=== PATIENT | male | born 1945 | race Caucasian/White ===

== ENCOUNTER 2016-03-16 11:03 | Emergency (ER) | payer MEDICARE, OTHER ==
[~2016-03-16] VITALS: Ht 185.4 cm; Wt 84.1 kg
[~2016-03-16 11:03] MED LIST: ASPIRIN 81M81 MG/TA2 PO; FLOMAX 0.40.4 MG/CAP PO; MACROBID 1100 MG/CAP PO; NEURONTIN400 MG/CAP PO; NORCO 325 MG-51 TAB PO; PRAVACHOL 20MG20 MG PO
[2016-03-16 11:05] VITALS: BP 151/87; PULSE 70; TEMP 98.5
[2016-03-16] MEDS ORDERED: MULTI VITAMINS1 TAB PO (11:10)
== END 2016-03-16 12:48 | disposition home or self-care (01) ==
LOC: COL.ER 11:03
DX: S82.832A Other fracture of upper and lower end of left fibula, initial encounter for closed fracture (principal); W00.0XXA Fall on same level due to ice and snow, initial encounter; Y92.008 Other place in unspecified non-institutional (private) residence as the place of occurrence of the external cause

== ENCOUNTER 2019-04-03 13:00 | Outpatient (RCR) | payer MEDICARE, OTHER ==
[~2019-04-03 13:00] MED LIST changes: +MULTI VITAMINS1 TAB PO
[2019-04-03 14:16] VITALS: BP 122/73; PULSE 69; TEMP 98.6
[2019-04-03] MEDS ORDERED: CRESEMBA186 MG PO (14:22)
[2019-04-03] MEDS ORDERED: BACTRIM DS 8001 TAB PO (14:23)
[2019-04-03 14:34] VITALS: BP 121/71; PULSE 69; TEMP 98.5
[2019-04-03 14:49] VITALS: BP 119/68; PULSE 68; TEMP 98.3
[2019-04-03 15:19] VITALS: BP 105/72; PULSE 66; TEMP 98
[2019-04-03 15:32] VITALS: BP 115/68; PULSE 67; TEMP 97.4
== END 2019-04-03 15:35 | disposition home or self-care (01) ==
LOC: EUO 13:00
DX: C92.00 Acute myeloblastic leukemia, not having achieved remission (principal); D61.818 Other pancytopenia
CPT/HCPCS: J7050; P9037

== ENCOUNTER 2019-04-07 21:58 | Inpatient (IN) | payer MEDICARE, OTHER ==
[~2019-04-07] VITALS: Ht 182.9 cm; Wt 74.4 kg
[~2019-04-07 21:58] MED LIST changes: +BACTRIM DS 8001 TAB PO; +CRESEMBA186 MG PO
[2019-04-07 23:02] LABS: MEAN CELL VOLUME 97 fl (80.0-100.0); MEAN CORPUSCULAR HGB CONC 32 g/dl (33.0-37.0); MEAN PLATELET VOLUME 10.6 fl (7.4-10.4); RED BLOOD COUNT 2.91 M/mm3 (4.20-5.60); REDCELL DISTRIBUTION WIDTH-CV 15.4 % (11.5-14.5)
[2019-04-07 23:07] LABS: COLLECTION METHOD CLEAN CATCH
[2019-04-07 23:12] LABS: HEMATOCRIT 28.1 % (42.0-52.0); MEAN CORPUSCULAR HEMOGLOBIN 31 pg (27.0-31.0)
[2019-04-07 23:13] LABS: PLATELET COUNT 14 K/mm3 (130-400)
[2019-04-07 23:13] LABS: PH 6 (5-8); SQUAMOUS EPITHELIAL None Seen /hpf; URINE APPEARANCE Clear; URINE BACTERIA None Seen /hpf; URINE BILIRUBIN Negative (NEGATIVE); URINE BLOOD Negative (NEGATIVE); URINE COLOR Yellow; URINE GLUCOSE Negative (NEGATIVE); URINE KETONE Negative (NEGATIVE); URINE LEUKOCYTE ESTERASE Negative (NEGATIVE); URINE NITRATE Negative (NEGATIVE); URINE PROTEIN(semi-quant) Negative (NEGATIVE); URINE RBC 0-2 /hpf; URINE UROBILINOGEN Negative (NEGATIVE); URINE WBC 0-2 /hpf
[2019-04-07 23:17] LABS: ALBUMIN 4.3 gm/dL (3.5-5.0); BILIRUBIN,TOTAL 0.4 mg/dL (0.0-1.0); CALCIUM 9.1 mg/dL (8.4-10.2); CREATININE, serum 0.9 (0.66-1.25); POTASSIUM 4.6 mmol/L (3.4-5.0); TOTAL PROTEIN 7.2 gm/dL (6.4-8.2)
[2019-04-07 23:30] LABS: TROPONIN-I 0.073 ng/mL (0.000-0.035)
[2019-04-08 03:58] VITALS: BP 131/64; PULSE 74; TEMP 99.4
[2019-04-08 05:07] LABS: BAND 8 % (0-10); LYMPHOCYTE 19 % (20.0-51.0); NEUTROPHILS 69 % (42.0-75.2)
--- NOTE | 2019-04-08 05:16 | NUR ---
Patient arrived to medical floor from ER at approximately 0400. Assessment complete. Denies having pain and discomfort at this time. NS running at 125 ml/hr to peripheral IV to right AC. Site is without redness, warmth, swelling, and pain. LS CTA. Respirations even and unlabored. Denies SOB and dyspnea at rest. States he does get short of breath with exertion. On oxygen at 2 L/min via NC. HRR. Telemetry in place: sinus. Capillary refill less than 3 seconds. Non-tenting skin turgor. BSAx4. Abdomen soft and non-tender. Denies diarrhea and constipation. No edema. Voices no questions, needs, or concerns at this time. Resting in bed with call light within reach.
--- NOTE | 2019-04-08 07:04 | NUR ---
Report given to day shift nurse.
[2019-04-08 07:49] VITALS: BP 118/59; PULSE 70; TEMP 98.9
[2019-04-08 08:29] LABS: CALCIUM 8.7 mg/dL (8.4-10.2); CREATININE, serum 0.71 (0.66-1.25); POTASSIUM 4.2 mmol/L (3.4-5.0)
[2019-04-08 08:36] LABS: EOS # 0.2 (0.0-0.7); EOS % 3.7 % (0-4.0); GRAN # 3.1 (1.4-6.5); GRAN % 76.6 % (42.2-75.2); LYMPH # 0.6 (1.2-3.4); LYMPH % 15.3 % (20.0-51.0); MEAN CELL VOLUME 98 fl (80.0-100.0); MEAN CORPUSCULAR HGB CONC 32 g/dl (33.0-37.0); MONO # 0.2 (0.1-0.6); MONO % 4.2 % (1.7-9.3); RED BLOOD COUNT 2.57 M/mm3 (4.20-5.60); REDCELL DISTRIBUTION WIDTH-CV 15.7 % (11.5-14.5)
[2019-04-08 09:01] LABS: TROPONIN-I 6 HR POST INITIAL 0.055 ng/mL (0.000-0.034)
[2019-04-08 09:18] LABS: HEMATOCRIT 25.2 % (42.0-52.0); MEAN CORPUSCULAR HEMOGLOBIN 31 pg (27.0-31.0)
[2019-04-08 09:19] LABS: PLATELET COUNT 12 K/mm3 (130-400)
--- NOTE | 2019-04-08 09:53 | NUR ---
Patient lives at home with his (Malik Dixon [phone]) in [place], [place] and plans to return home upon recovery. 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 Patient is receiving medical care from Dmitry Butler and Dr. Ortiz ([facility]), her pharmacy is [facility]) and he does not have advance directives for healthcare completed or on edwar at this time. 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 Patient has three children who are supportive; one child lives local in [place] and the other two children live [id number]. No further needs and health social work professor will follow up as needed.
[2019-04-08 11:12] VITALS: BP 123/57; PULSE 67; TEMP 98.2
--- NOTE | 2019-04-08 12:17 | NUR ---
Patient sitting in bed upon shift assessment. Denies having any pain at this time. States he is just tired and has very little energy. Patient has been afebrile since arriving, highest recorded temperature is 99.3 degrees. As of beginning of shift temp was 98.9 degrees. Patient's daughter Mary called for an update on patient. Patient gave daughter patient password so information could be given to her. Daughter and son-in-law at bedside. No further concerns at this time. Call light in reach.
[2019-04-08 15:32] LABS: EOS # 0.1 (0.0-0.7); EOS % 2.8 % (0-4.0); GRAN # 3.8 (1.4-6.5); GRAN % 80.9 % (42.2-75.2); LYMPH # 0.6 (1.2-3.4); LYMPH % 11.8 % (20.0-51.0); MEAN CELL VOLUME 98 fl (80.0-100.0); MEAN CORPUSCULAR HGB CONC 32 g/dl (33.0-37.0); MEAN PLATELET VOLUME 10.7 fl (7.4-10.4); MONO # 0.2 (0.1-0.6); MONO % 4.3 % (1.7-9.3); RED BLOOD COUNT 2.42 M/mm3 (4.20-5.60); REDCELL DISTRIBUTION WIDTH-CV 15.3 % (11.5-14.5)
[2019-04-08 15:33] LABS: HEMATOCRIT 23.6 % (42.0-52.0); HEMOGLOBIN 7.5 g/dl (13.5-18.0); MEAN CORPUSCULAR HEMOGLOBIN 31 pg (27.0-31.0); PLATELET COUNT 10 K/mm3 (130-400)
[2019-04-08 16:36] VITALS: BP 128/60; PULSE 73; TEMP 100.1
[2019-04-08 18:39] VITALS: TEMP 100.8
--- NOTE | 2019-04-08 19:26 | NUR ---
Patient's temperature up to 100.8 this evening with chills and face flushing. Tylenol given. Renay notified. Additional blood cultures ordered.
[2019-04-08 21:16] VITALS: BP 105/55; PULSE 69; TEMP 99.2
[2019-04-09] VITALS (11 sets, daily range): BP systolic 104–144; BP diastolic 55–85; PULSE 64–83; TEMP 98.3–101.6
--- NOTE | 2019-04-09 01:16 | NUR ---
ASSESSMENT COMPLETE.RESTING IN BED. DAUGHTER AT BEDSIDE. 02 3L PER NC. DENIES NEEDS AT THIS TIME.
[2019-04-09 06:20] LABS: EOS # 0.1 (0.0-0.7); EOS % 1.9 % (0-4.0); GRAN # 3.5 (1.4-6.5); GRAN % 82.7 % (42.2-75.2); LYMPH # 0.5 (1.2-3.4); LYMPH % 11.4 % (20.0-51.0); MEAN CELL VOLUME 96 fl (80.0-100.0); MEAN CORPUSCULAR HGB CONC 32 g/dl (33.0-37.0); MEAN PLATELET VOLUME 11.1 fl (7.4-10.4); MONO # 0.2 (0.1-0.6); MONO % 3.5 % (1.7-9.3); REDCELL DISTRIBUTION WIDTH-CV 15.1 % (11.5-14.5)
[2019-04-09 06:21] LABS: CALCIUM 8.8 mg/dL (8.4-10.2); CREATININE, serum 0.7 (0.66-1.25); MAGNESIUM 1.6 mg/dL (1.6-2.3); POTASSIUM 4.4 mmol/L (3.4-5.0)
[2019-04-09 06:33] LABS: HEMOGLOBIN 7.4 g/dl (13.5-18.0); MEAN CORPUSCULAR HEMOGLOBIN 31 pg (27.0-31.0)
[2019-04-09 06:37] LABS: PLATELET COUNT 40 K/mm3 (130-400)
--- NOTE | 2019-04-09 07:00 | NUR ---
Bedside shift report received from HANNAH Mcintosh. Pt in bed resting, very diaphoretic, re-checked temperature and it is 98.4 now. Will continue michelle ontor.
--- NOTE | 2019-04-09 10:00 | NUR ---
Assessment charted. Pt feeling lethargic and falls alseep easily today. family resting at bedside. Following neutropenic precautions per request from family. Pt remains afebrile, eating some. O2 remains at 4L NC, only at 92% cannot titrate down at this time. Bed bath and linen change provided but pt wants to get some rest and nap. Will cotninue to monitor.
[2019-04-09 11:15] LABS: ARTERIAL BLD GAS O2 SATURATION 92.8 % (92-100); ARTERIAL BLD GAS TCO2 CT 23.6; ARTERIAL BLOOD GAS HCO3 22.6 meq/L (22-26); ARTERIAL BLOOD GAS PO2 69.4 mmHg (80-100); ARTERIAL BLOOD GAS pH 7.45 (7.35-7.45)
--- NOTE | 2019-04-09 11:34 | NUR ---
Advertising Account Executive attended clinical rounds with the team. Patient currently on four liters of oxygen. SW to continue to follow as needed.
--- NOTE | 2019-04-09 19:07 | NUR ---
Pt has had one temp for us today, PRN tylenol given. Unable to titrate 02 needs down, switched to OM per RT to help with mouth breathing. Pt eating in bed, bedside shift report given to nightshift nurse who will resume care.
--- NOTE | 2019-04-09 22:04 | NUR ---
ASSESSMENT COMPLETE. RESTING IN BED. 02 PER OXY MASK @ 5L. SON-IN-LAW AT BEDSIDE. DENIES NEEDS AT THIS TIME.
[2019-04-10] VITALS (535 sets, daily range): BP systolic 98–144; BP diastolic 57–74; PULSE 68–85; TEMP 97.5–102.2; O2SAT 76–100
[2019-04-10 04:16] LABS: ARTERIAL BLD GAS O2 SATURATION 94.8 % (92-100); ARTERIAL BLD GAS TCO2 CT 21.5; ARTERIAL BLOOD GAS BASE EXCESS -2.5 (-2-2); ARTERIAL BLOOD GAS HCO3 20.6 meq/L (22-26); ARTERIAL BLOOD GAS PO2 77.7 mmHg (80-100); ARTERIAL BLOOD GAS pH 7.47 (7.35-7.45)
--- NOTE | 2019-04-10 05:35 | NUR ---
@[id number] NOTIFIED PROVIDER THAT PT 02 NEEDS INCREASED TO 6L PER HIGH FLOW N/C, SATED 88% AFTER LIGHT EXERTION TURNING IN BED FOR BED CHANGE. ABG ORDERED.
[2019-04-10 08:39] LABS: EOS # 0.1 (0.0-0.7); EOS % 2.6 % (0-4.0); GRAN # 4.1 (1.4-6.5); GRAN % 74.7 % (42.2-75.2); LYMPH # 1.1 (1.2-3.4); LYMPH % 19.4 % (20.0-51.0); MEAN CELL VOLUME 98 fl (80.0-100.0); MEAN CORPUSCULAR HGB CONC 32 g/dl (33.0-37.0); MEAN PLATELET VOLUME 11.1 fl (7.4-10.4); MONO # 0.2 (0.1-0.6); MONO % 3.1 % (1.7-9.3); RED BLOOD COUNT 2.81 M/mm3 (4.20-5.60); REDCELL DISTRIBUTION WIDTH-CV 15.1 % (11.5-14.5)
[2019-04-10 08:48] LABS: CALCIUM 8.9 mg/dL (8.4-10.2); CREATININE, serum 0.82 (0.66-1.25)
[2019-04-10 08:54] LABS: HEMATOCRIT 27.5 % (42.0-52.0); HEMOGLOBIN 8.7 g/dl (13.5-18.0); MEAN CORPUSCULAR HEMOGLOBIN 31 pg (27.0-31.0)
[2019-04-10 08:55] LABS: PLATELET COUNT 35 K/mm3 (130-400)
--- NOTE | 2019-04-10 09:40 | NUR ---
Patient arrives to ICU on 8LO2. He is able to move from wheelchair to bed with little assitance. Patient and his son in law are oriented to room, call light, visitor policies and questions are answered. Plan of care is reviewed. Assessment completed. Will continue to monitor
--- NOTE | 2019-04-10 09:43 | NUR ---
Assessment completed, alert/oriented, vital signs stable/ afebrile, denies pain, patient O2 demands continue to increase/ he is now on 8L. o2 Hi-flow, lungs bases are diminished with some fine crackles, he gets very SOA with exertion, heart RRR/distal pulses are palpable, was consulted and has been by to evaluate/ Solu-medrol ordered and he would like him moved to [facility] for closer observation, [facility] have been in contact with patient care team at [facility], family present in the room and plan of care discussed and questions answered, I have called and given report to receiving nurse HANNAH No in the ICU, we are transporting patient by wheelchair to room ICU 5 / son present at time of transfer
--- NOTE | 2019-04-10 13:59 | NUR ---
Vancomycin Initial Dosing Pharmacy Note Ordering provider: Carlyle Indication/duration: Empiric LABS: eCrCl ~ 90 Recommendation: Maintenance dose: 1.25 grams every 12 hours Trough goal: 15-20 ug/mL with first level 04/12/19 @ 13:30. Will continue to follow.
--- NOTE | 2019-04-10 17:00 | NUR ---
OXYGEN VIA NASAL CANNULA HAS BEEN TITRATED DOWN TO 2L/MIN. PATIENT HAS MAINTAINED SPO2 OF 92-96%. HE IS NOW OUT OF BED, SITTING UP IN RECLINER. HE HAS NO COMPLAINTS. WILL CONTINUE TO MONITOR.
--- NOTE | 2019-04-10 19:32 | NUR ---
BEDSIDE REPORT GIVEN TO HANNAH TEE
[2019-04-11] VITALS (722 sets, daily range): BP systolic 97–115; BP diastolic 61–67; PULSE 63–68; TEMP 97.5–98.8; O2SAT 78–100
[2019-04-11 04:38] LABS: MEAN CELL VOLUME 95 fl (80.0-100.0); MEAN CORPUSCULAR HGB CONC 33 g/dl (33.0-37.0); RED BLOOD COUNT 2.44 M/mm3 (4.20-5.60); REDCELL DISTRIBUTION WIDTH-CV 14.6 % (11.5-14.5)
[2019-04-11 04:47] LABS: HEMATOCRIT 23.1 % (42.0-52.0); HEMOGLOBIN 7.6 g/dl (13.5-18.0); MEAN CORPUSCULAR HEMOGLOBIN 31 pg (27.0-31.0)
[2019-04-11 04:48] LABS: PLATELET COUNT 29 K/mm3 (130-400)
[2019-04-11 04:55] LABS: ALBUMIN 3.7 gm/dL (3.5-5.0); BILIRUBIN,TOTAL 0.3 mg/dL (0.0-1.0); CALCIUM 8.9 mg/dL (8.4-10.2); CREATININE, serum 0.71 (0.66-1.25); MAGNESIUM 2.1 mg/dL (1.6-2.3); PHOSPHOROUS 3.1 mg/dL (2.5-4.5); POTASSIUM 4.9 mmol/L (3.4-5.0); TOTAL PROTEIN 6.7 gm/dL (6.4-8.2)
[2019-04-11 05:08] LABS: BAND 8 % (0-10); LYMPHOCYTE 9 % (20.0-51.0); NEUTROPHILS 83 % (42.0-75.2); PLATELET ESTIMATE DECREASED (NORMAL)
[2019-04-11 05:42] LABS: ARTERIAL BLD GAS O2 SATURATION 92.9 % (92-100); ARTERIAL BLD GAS TCO2 CT 22.5; ARTERIAL BLOOD GAS BASE EXCESS -2.4 (-2-2); ARTERIAL BLOOD GAS HCO3 21.5 meq/L (22-26); ARTERIAL BLOOD GAS PO2 69.9 mmHg (80-100); ARTERIAL BLOOD GAS pH 7.43 (7.35-7.45)
--- NOTE | 2019-04-11 07:00 | NUR ---
BEDSIDE REPORT RECEIVED FROM HANNAH TEE
--- NOTE | 2019-04-11 08:09 | NUR ---
DR. GOODRICH HERE TO SEE PATIENT. SON IN LAW IN ROOM ALSO
--- NOTE | 2019-04-11 09:00 | NUR ---
PATIENT PLACED ON ROOM AIR. WAITED A FEW MINUTES AND SPO2 MAINTAINED AT 98%.
--- NOTE | 2019-04-11 11:53 | NUR ---
Initial visit; Patient thanked Relief Captain for looking in on him and offering God's blessings.
--- NOTE | 2019-04-11 17:00 | NUR ---
PATIENT CONTINUES TO DO WELL. NO COMPLAINTS. HE REMAINS ON ROOM AIR. VS WNL. FLOOR ORDERS RECEIVED.
--- NOTE | 2019-04-11 19:08 | NUR ---
REPORT GIVEN TO HANNAH DENNIS
[2019-04-12] VITALS (557 sets, daily range): BP systolic 113–120; BP diastolic 66–75; PULSE 62–68; TEMP 97.3–97.8; O2SAT 73–99
[2019-04-12 05:20] LABS: GRAN # 10.1 (1.4-6.5); GRAN % 95.4 % (42.2-75.2); LYMPH # 0.3 (1.2-3.4); LYMPH % 3.1 % (20.0-51.0); MEAN CELL VOLUME 97 fl (80.0-100.0); MEAN CORPUSCULAR HGB CONC 33 g/dl (33.0-37.0); MONO # 0.1 (0.1-0.6); MONO % 0.8 % (1.7-9.3); RED BLOOD COUNT 2.59 M/mm3 (4.20-5.60); REDCELL DISTRIBUTION WIDTH-CV 14.9 % (11.5-14.5)
[2019-04-12 05:22] LABS: HEMOGLOBIN 8.2 g/dl (13.5-18.0); MEAN CORPUSCULAR HEMOGLOBIN 32 pg (27.0-31.0)
[2019-04-12 05:24] LABS: PLATELET COUNT 27 K/mm3 (130-400)
[2019-04-12 05:33] LABS: ALBUMIN 3.9 gm/dL (3.5-5.0); BILIRUBIN,TOTAL 0.3 mg/dL (0.0-1.0); CALCIUM 9.3 mg/dL (8.4-10.2); CREATININE, serum 0.9 (0.66-1.25); MAGNESIUM 2.2 mg/dL (1.6-2.3); TOTAL PROTEIN 6.9 gm/dL (6.4-8.2)
[2019-04-12 05:47] LABS: ARTERIAL BLD GAS O2 SATURATION 90.5 % (92-100); ARTERIAL BLD GAS TCO2 CT 20.3; ARTERIAL BLOOD GAS BASE EXCESS -4.5 (-2-2); ARTERIAL BLOOD GAS HCO3 19.4 meq/L (22-26); ARTERIAL BLOOD GAS PCO2 30.9 mmHg (35-45); ARTERIAL BLOOD GAS PO2 64.2 mmHg (80-100); ARTERIAL BLOOD GAS pH 7.42 (7.35-7.45)
--- NOTE | 2019-04-12 11:35 | NUR ---
CORRECTIONS COUNSELOR student presented the IM form to the patient. The patient understood and signed the form. A copy was provided to the patient and original was placed in the chart.
[2019-04-12] MEDS ORDERED: ZITHROMAX500 M2 PO (13:30)
[2019-04-12] MEDS ORDERED: PREDNISONE20 MG PO (13:31)
--- NOTE | 2019-04-12 15:33 | NUR ---
DISCHARGE PACKET REVIEWED WITH THE PATIENT AND HIS SON IN LAW. THEY BOTH VERBALIZE UNDERSTANDING. PATIENT TAKEN OUT TO CAR WITH SON TO DRIVE HOME.
[2019-04-13 07:11] LABS: TB GOLD INTERPRETATION Negative (Negative)
== END 2019-04-12 15:34 | disposition home or self-care (01) | DRG 864 ==
LOC: COL.ER 21:58 → MEDICAL 04-08 02:06 → ICU 04-10 09:35
PROVIDERS: Emergency Medicine; Internal Medicine Pulmonary Disease; Nurse Practitioner Family; ADMIT Hospitalist
DX: R50.2 Drug induced fever (principal); J96.01 Acute respiratory failure with hypoxia; C92.00 Acute myeloblastic leukemia, not having achieved remission; D61.818 Other pancytopenia; I24.8 Other forms of acute ischemic heart disease; E87.2 Acidosis; T45.1X5A Adverse effect of antineoplastic and immunosuppressive drugs, initial encounter; E11.9 Type 2 diabetes mellitus without complications; E78.5 Hyperlipidemia, unspecified; G62.9 Polyneuropathy, unspecified; R07.89 Other chest pain; Z66 Do not resuscitate; E83.42 Hypomagnesemia; I27.20 Pulmonary hypertension, unspecified; D63.0 Anemia in neoplastic disease; Z87.891 Personal history of nicotine dependence; Z88.5 Allergy status to narcotic agent; Z88.8 Allergy status to other drugs, medicaments and biological substances
CPT/HCPCS: 99233-AI; 99239; A4216; A9284; G0378; J0692; J2920; J3370; J3475; J7030; J7050; J7512; P9037; Q9967

== ENCOUNTER 2019-04-17 13:29 | Outpatient (RCR) | payer MEDICARE, OTHER ==
[~2019-04-17 13:29] MED LIST changes: +PREDNISONE20 MG PO; +ZITHROMAX500 M2 PO
[2019-04-17 13:33] VITALS: BP 114/64; PULSE 83; TEMP 98.5
[2019-04-17 14:27] VITALS: BP 111/67; PULSE 68; TEMP 98.7
[2019-04-17 14:42] VITALS: BP 112/73; PULSE 68; TEMP 98.6
[2019-04-17 15:00] VITALS: BP 119/77; PULSE 65; TEMP 98.5
[2019-04-17 15:16] VITALS: BP 115/75; PULSE 69; TEMP 98.6
== END 2019-04-17 15:40 | disposition home or self-care (01) ==
LOC: EUO 13:29
DX: C92.00 Acute myeloblastic leukemia, not having achieved remission (principal)
CPT/HCPCS: J7050; P9037

== ENCOUNTER 2019-06-25 07:59 | Day surgery (SDC) | payer MEDICARE, OTHER ==
[~2019-06-25] VITALS: Wt 80.3 kg
[2019-06-25] MEDS ORDERED: ZOVIRAX800 MG PO (08:33)
[2019-06-25] MEDS ORDERED: LEVAQUIN 750MG750 M1 PO (08:34)
[2019-06-25] MEDS ORDERED: FLOMAX 0.40.4 MG/CAP PO (08:35)
[2019-06-25 09:06] VITALS: BP 145/92; PULSE 56; TEMP 97.8
[2019-06-25 10:22] VITALS: BP 106/68; PULSE 62; TEMP 97.9
[2019-06-25 10:37] VITALS: BP 124/74; PULSE 53; TEMP 97.9
--- NOTE | 2019-06-25 10:44 | NUR ---
Patient back from bone marrow bx at 1022, report received by Lupe YOUNG. Patient is resting in bed, drifts in and out of sleep, responds to name, denies pain or needs at this time. Dressing to Left lower back intact and dry. Water taken, HOB elevated 45 degrees.
[2019-06-25 10:46] LABS: HEMOGLOBIN 11.2 g/dl (13.5-18.0); MEAN CELL VOLUME 99 fl (80.0-100.0); MEAN CORPUSCULAR HEMOGLOBIN 34 pg (27.0-31.0); MEAN CORPUSCULAR HGB CONC 34 g/dl (33.0-37.0); MEAN PLATELET VOLUME 12.7 fl (7.4-10.4); RED BLOOD COUNT 3.34 M/mm3 (4.20-5.60); REDCELL DISTRIBUTION WIDTH-CV 16.3 % (11.5-14.5)
[2019-06-25 11:07] VITALS: BP 151/86; PULSE 51; TEMP 98
--- NOTE | 2019-06-25 11:38 | NUR ---
Patient discharged at 1130, alert and orientatedm able to ambulate with no difficulty. Dressing on left lower back dry and intact. VS WNL, discharge instructions read to patient, verbalized understanding, denies questions.
[2019-06-25 11:50] LABS: PLATELET COUNT 40 K/mm3 (130-400)
[2019-06-25 11:51] LABS: BAND 1 % (0-10); LYMPHOCYTE 53 % (20.0-51.0); NEUTROPHILS 39 % (42.0-75.2)
[2019-06-25 11:52] LABS: ANISOCYTOSIS 1+; BASOPHIL 2 % (0-2); EOSINOPHIL 1 % (0-4); PLATELET ESTIMATE DECREASED (NORMAL)
== END 2019-06-25 11:30 | disposition home or self-care (01) ==
LOC: SDCO 07:59
PROVIDERS: Pathology Anatomic Pathology & Clinical Pathology
DX: C92.00 Acute myeloblastic leukemia, not having achieved remission (principal)
CPT/HCPCS: J2704; J3010; J7030